=== PATIENT | male | born 1990 | race Caucasian/White ===

== ENCOUNTER 2019-10-21 20:16 | Emergency (ER) | payer OTHER, SELFPAY ==
--- NOTE | ~2019-10-21 | CT_ITS ---
EXAMINATION: CT abdomen pelvis wo con DATE: 10/21/2019 21:39 INDICATION: Left flank pain. TECHNIQUE: Computed tomography (CT) of the abdomen and pelvis was performed without intravenous contr ast. Automated exposure control and iterative reconstruction technique were employed. The dose-length product was 195.60 mGy-cm. COMPARISON: None FINDINGS: 5 mm nodule in the right lower lobe. Mild atelectasis in the left lower lobe. Heart size is normal. N o pericardial or pleural effusion. Liver, gallbladder, spleen, pancreas and bilateral adrenal glands are normal. Kidneys and ureters are normal with no urolithiasis, hydroureteronephrosis or perinephric /ureteral stranding. Bladder is normal. Large amount of stool scattered throughout the colon. No abno rmal bowel wall thickening or obstruction. Appendix is normal. No free intraperitoneal gas or fluid. No pathologically enlarged abdominal or pelvic lymphadenopathy. Mild thoracolumbar spondylosis. IMPRESSION: 1. No urolithiasis or acute intra-abdominal/pelvic process. Reviewed, dictated and finalized at location A. 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
[2019-10-21 20:36] VITALS: BP 155/88; PULSE 89; RESP 18; TEMP 36.7; O2SAT 97
[2019-10-21] MEDS: SODIUM CHLORIDE 0.9% IV 1,000 ML 999 ML IV CONT (21:00)
[2019-10-21] MEDS: KETOROLAC 30 MG/ML VIAL (*BKC) IV PUSH (21:01)
[2019-10-21 21:02] LABS: Basophils Absolute Auto 0.03 K/mm3 (0.00-0.10); Basophils Percent Auto 0.4 % (0.0-1.0); Eosinophils Absolute Auto 0.16 K/mm3 (0.02-0.50); Eosinophils Percent Auto 1.9 % (1.0-6.0); Hematocrit 40.4 % (40.0-54.0); Hemoglobin 14.7 g/dL (14.0-18.0); Immature Granulocyte Absolute 0.03 K/mm3 (0.00-0.00); Immature Granulocyte Percent A 0.4 % (0.0-0.0); Lymphocytes Percent Auto 26.1 % (18.0-42.0); Mean Corpuscular HGB Conc 36.4 g/dL (32.0-36.0); Mean Corpuscular Hemoglobin 31.9 pg (27.0-31.0); Mean Corpuscular Volume 87.6 fL (78.0-102.0); Mean Platelet Volume 8.6 fl (8.7-11.0); Monocytes Absolute Auto 0.58 K/mm3 (0.10-0.90); Monocytes Percent Auto 6.9 % (2.0-11.0); Neutrophils Absolute Auto 5.4 K/mm3 (1.7-7.2); Neutrophils Percent Auto 64.3 % (50.0-70.0); Platelet Count Result 248 K/mm3 (150-420); Red Blood Count 4.61 M/mm3 (4.70-6.10); Red Cell Distribution Width 12.3 % (11.6-14.4); White Blood Count 8.4 K/mm3 (4.8-10.8)
[2019-10-21 21:14] LABS: Partial Thromboplastin Time 28.1 SEC (22.3-31.6)
[2019-10-21 21:19] LABS: Alanine Aminotransferase 21 U/L (16-63); Albumin Level 4.4 g/dL (3.4-5.0); Alkaline Phosphatase 74 U/L (46-116); Anion Gap 11.7 mmol/L (7-16); Aspartate Amino Transferase 18 U/L (15-37); Bilirubin,Total 0.9 mg/dL (0.00-1.00); Blood Urea Nitrogen 16 mg/dL (7-18); Calcium 8.9 mg/dL (8.5-10.1); Carbon Dioxide 30 mmol/L (21-32); Chloride 104 mmol/L (98-108); Estimated CRCL calculation 89 ml/min; Estimated Glomerular Filt Rate > 60; Glucose 96 mg/dL (70-99); Lipase 104 U/L (73-393); Osmolality Calculated 295 mOsm/kg (285-295); Potassium 3.7 mmol/L (3.5-5.1); Sodium 142 mmol/L (136-145); Total Protein 7.4 g/dL (6.4-8.2)
--- NOTE | 2019-10-21 21:24 | ED.BACK ---
HPI - Back Pain/Injury General Chief Complaint: Back Pain/Injury Stated Complaint: 29 YO male w/ no known medical illness here c/o sudden onset of left flank pain w/ radiation to groin that started suddenly at 7:30pm. Here for eval. Related Data Home Medications Medication Instructions Recorded Confirmed atomoxetine 100 mg PO DAILY 10/21/19 10/21/19 buspirone 5 mg PO DAILY 10/21/19 10/21/19 escitalopram oxalate 20 mg PO DAILY 10/21/19 10/21/19 Allergies Allergy/AdvReac Type Severity Reaction Status Date / Time No Known Allergies Allergy Verified 10/21/19 21:10 Review of Systems Constitutional: Constitutional: Reports as per HPI, Reports no additional constitutional complaints, Denies chills and Denies fever(s) ENT: Reports system reviewed and no additional complaints, except as documented Cardiovascular: Cardiovascular: Reports as per HPI and Reports no additional cardiovascular complaints Respiratory: Respiratory: Reports as per HPI and Reports no additional respiratory complaints Gastrointestinal: Gastrointestinal: Reports as per HPI and Reports no additional gastrointestinal complaints Genitourinary: Genitourinary: Reports flank pain (Left CVA TTP) Musculoskeletal: Musculoskeletal: Reports no additional musculoskeletal complaints [facility] Past Medical History Medical History (Updated 10/21/19 @ 22:28 by Mac Richmond MD) ADD (attention deficit disorder) Anxiety Depression Family History Family History (Updated 12/11/17 @ 10:25 by DOCTOR UNKNOWN) Mother Hypertension Sibling Patient's sister is in good health Patient's brother is in good health Exam Const: General: cooperative, healthy appearing and comfortable Chest: Chest palpation & inspection: normal inspection of the chest and normal palpation of entire chest wall Cardio: Jugular venous distension: no JVD GI: Inspection: normal to inspection GI Palp: No abdominal tenderness, Yes Soft to palpation, No Tenderness to palpation present (GI), No Guarding due to palpation present (GI) and No Rigid due to palpation Percussion: Yes normal to percussion Auscultation: normal bowel sounds Rectal Exam: deferred : General: Yes CVA tenderness on the left Back/Spine/Pelvis: Back: CVA tenderness Course Vital Signs Vital signs: Vital Signs Temperature 36.7 C 10/21/19 20:36 Pulse Rate 89 10/21/19 20:36 Respiratory Rate 18 10/21/19 20:36 Blood Pressure 155/88 H 10/21/19 20:36 Pulse Oximetry 97 10/21/19 20:36 Temperature 36.7 C 10/21/19 20:36 Pulse Rate 89 10/21/19 20:36 Respiratory Rate 18 10/21/19 20:36 Blood Pressure 155/88 H 10/21/19 20:36 Pulse Oximetry 97 10/21/19 20:36 MDM - Back Pain/Injury Differential Diagnosis Differential diagnosis: Likely strain of lumbar region and renal colic Lab Data Result diagrams: 10/21/19 20:59 10/21/19 20:59 Labs: Lab Results 10/21/19 10/21/19 10/21/19 Range/Units 20:59 20:59 20:59 WBC 8.4 (4.8-10.8) K/mm3 RBC 4.61 L (4.70-6.10) M/mm3 Hgb 14.7 (14.0-18.0) g/dL Hct 40.4 (40.0-54.0) % MCV 87.6 (78.0-102.0) fL MCH 31.9 H (27.0-31.0) pg MCHC 36.4 H (32.0-36.0) g/dL RDW 12.3 (11.6-14.4) % Plt Count 248 (150-420) K/mm3 MPV 8.6 L (8.7-11.0) fl Immature Gran % (Auto) 0.4 H (0.0-0.0) % Neut % (Auto) 64.3 (50.0-70.0) % Lymph % (Auto) 26.1 (18.0-42.0) % [place] % (Auto) 6.9 (2.0-11.0) % Eos % (Auto) 1.9 (1.0-6.0) % Baso % (Auto) 0.4 (0.0-1.0) % Lymph # (Auto) 2.20 (1.10-4.50) K/mm3 [place] # (Auto) 0.58 (0.10-0.90) K/mm3 Eos # (Auto) 0.16 (0.02-0.50) K/mm3 Baso # (Auto) 0.03 (0.00-0.10) K/mm3 Abs Immat Gran (auto) 0.03 H (0.00-0.00) K/mm3 Absolute Neuts (auto) 5.4 (1.7-7.2) K/mm3 Absolute Nucleated RBC 0.00 (0.00-0.00) K/mm3 Nucleated RBC % 0.0 (0-0.0) % PT 11.0 (9.64-11.0) Seconds INR 1.0 APTT 28
[2019-10-21 22:37] VITALS: BP 148/85; PULSE 78; RESP 20; O2SAT 100
== END 2019-10-21 22:38 | disposition home or self-care (01) ==
PROVIDERS: Emergency Provider Family Medicine
DX: S39.012A Strain of muscle, fascia and tendon of lower back, initial encounter (principal)
CPT/HCPCS: 36415; 74176; 80053; 83690; 85025; 85610; 85730; 96361; 96374; 99283; 99284; J1885; J7030

== ENCOUNTER 2020-11-04 12:08 | Outpatient (CLI) | payer OTHER, SELFPAY ==
--- NOTE | ~2020-11-04 | XR_ITS ---
EXAMINATION: XR shoulder RT min 2V DATE: 11/04/2020 12:35 INDICATION: Right shoulder effusion post fall TECHNIQUE: AP internally and externally rotated, AP oblique externally rotated and transscapular Y vi ews of the right shoulder were obtained. COMPARISON: None FINDINGS: Normal alignment. No fracture. Glenohumeral joint is normal. Acromioclavicular joint is normal. Soft tissues are unremarkable. Cluster of calcified nodules in the right midlung zone consistent with old granulomatous disease. IMPRESSION: No osseous abnormality. Reviewed, dictated and finalized at location B. 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
--- NOTE | ~2020-11-04 | XR_ITS ---
EXAMINATION: XR ankle LT min 3V DATE: 11/04/2020 12:34 INDICATION: Left ankle pain post fall TECHNIQUE: Anteroposterior, oblique, mortise, and lateral views of the left ankle were obtained. COMPARISON: None. FINDINGS: Alignment is normal. No fracture. Joint spaces are well maintained. No ankle joint effusion. The so ft tissues are unremarkable. IMPRESSION: 1. Negative left ankle radiographs. Reviewed, dictated and finalized at location B. 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
== END 2020-11-04 12:09 | disposition home or self-care (01) ==
PROVIDERS: PCP Family Medicine; Visit Provider Family Medicine
DX: M25.572 Pain in left ankle and joints of left foot (principal); M25.411 Effusion, right shoulder
CPT/HCPCS: 73030; 73610

== ENCOUNTER 2021-04-26 20:21 | Emergency (ER) | payer OTHER, SELFPAY ==
--- NOTE | 2021-04-26 20:33 | ED.EYEPROB ---
HPI - Eye Problem General Chief complaint: Eye Problems Stated complaint: eye injury Time Seen by Provider: 04/26/21 20:45 Source: patient and family Mode of arrival: ambulatory Limitations: no limitations History of Present Illness HPI Narrative: Patient comes in with a flash urn after welding in an unprotected way. He evidently had his right eye not shielded you welding for some time yesterday. He started to develop right eye discomfort, which he describes as a sharp, stabbing, severe pain in the right eye. This started about one hour after he was welding with an unprotected right eye. Eye pain has been ongoing now for about 24 hours. Left eye has no discomfort, and was protected at all times. Nothing has decreased the pain at home. No other associated signs or symptoms. MD chief complaint: eye pain Onset description: gradual Duration: constant Location: right eye Eye Symptoms: burning, decreased vision and photophobia Place: work Mechanism: UV exposure Severity: severe If Pain, Quality: sharp Associated symptoms: none Treatments Prior to Arrival: NSAID Related Data Home Medications Medication Instructions Recorded Confirmed atomoxetine 100 mg PO DAILY 10/21/19 04/26/21 buspirone 5 mg PO DAILY 10/21/19 04/26/21 escitalopram oxalate 20 mg PO DAILY 10/21/19 04/26/21 Allergies Allergy/AdvReac Type Severity Reaction Status Date / Time No Known Allergies Allergy Verified 04/26/21 20:49 Review of Systems Constitutional: Constitutional: Reports no additional constitutional complaints Eyes: Eyes: Reports no additional eye complaints ENT: Reports system reviewed and no additional complaints, except as documented Cardiovascular: Cardiovascular: Reports no additional cardiovascular complaints Respiratory: Respiratory: Reports no additional respiratory complaints Gastrointestinal: Gastrointestinal: Reports no additional gastrointestinal complaints Genitourinary: Genitourinary: Reports no additional male genitourinary complaints Musculoskeletal: Musculoskeletal: Reports no additional musculoskeletal complaints Integumentary/Breasts: Skin/Breast: Reports system reviewed and no additional complaints, except as docu Neurologic: Reports system reviewed and no additional complaints, except as documented Psychiatric: Psychiatric: Reports no additional psychiatric complaints Endocrine: Endocrine: Reports no additional endocrine complaints Hematologic/Lymphatic: Hematologic/Lymphatic: Reports no additional hematologic/lymphatic complaints Allergic/Immunologic: Allergic/Immunologic: Reports no additional allergic/immunologic complaints PMFSH Past Medical History Medical History (Updated 04/26/21 @ 21:00 by Juan Morgan MD) ADD (attention deficit disorder) Anxiety Depression Surgical History Surgical History (Updated 04/26/21 @ 23:32 by Juan Morgan MD) No significant past surgical history Family History Family History Mother Hypertension Sibling Patient's sister is in good health Patient's brother is in good health Social History Social History (Updated 04/26/21 @ 23:33 by Juan Morgan MD) Smoking packs per day: 8 Smoking cigarettes per day: 160.0 Smoking status: Current every day smoker Alcohol intake: current Alcohol use details: minimal use Gender identity (if verbalized by the patient): Male Sexual Orientation (if Verbalized by the Patient): Straight or Heterosexual Exam Const: General: no acute distress and alert Orientation/consciousness: patient oriented x3 HENMT: Head: normal to inspection Ears: external ears normal General nose exam: Normal external nose present Face and sinus: normal facial exam Mouth: Yes moist mucous membranes Throat: posterior oropharynx normal Eyes: Other: Eye exam with fluorescein was performed. He appears to have an area about the size of a pea directly over his right cornea
[2021-04-26 20:38] VITALS: BP 162/104; PULSE 92; RESP 20; TEMP 36.9; O2SAT 100
[2021-04-26] MEDS: ERYTHROMYCIN OPHTH OINTMENT 3.5 GM TUBE 1 APPLIC RIGHT EYE (21:33)
[2021-04-26 21:34] VITALS: BP 143/85; PULSE 81; RESP 20; TEMP 36.7; O2SAT 100
== END 2021-04-26 21:35 | disposition home or self-care (01) ==
PROVIDERS: Emergency Provider Emergency Medicine; PCP Family Medicine
DX: H16.131 Photokeratitis, right eye (principal)
CPT/HCPCS: 99283; A9270

== ENCOUNTER 2021-06-02 16:41 | Outpatient (CLI) | payer OTHER, SELFPAY ==
--- NOTE | ~2021-06-02 | XR_ITS ---
XR lumbar spine 2-3V DATE: 06/02/2021 17:00 INDICATION: Low back pain after lifting injury 2 weeks ago TECHNIQUE: AP, lateral, coned lateral lumbosacral views COMPARISON: None FINDINGS: There is moderate loss of interspace height and mild spurring at L1-2 consistent with moder ate degenerative disc disease. The remaining lumbar and lumbosacral interspaces appear relatively pre served. No fracture or bone destruction or spondylolisthesis. The included lower thoracic and lumbar and pedi cles are intact. The sacroiliac joints are normal. IMPRESSION: Moderate degenerative disc disease at L1-2 Reviewed, dictated and finalized at location A.
== END 2021-06-02 16:42 | disposition home or self-care (01) ==
LOC: CHSIMG 16:43
PROVIDERS: PCP Family Medicine; Visit Provider Family Medicine
DX: M54.5 Low back pain (principal)
CPT/HCPCS: 72100

== ENCOUNTER 2021-06-15 17:19 | Emergency (ER) | payer OTHER, SELFPAY ==
[2021-06-15 17:26] VITALS: BP 148/96; PULSE 101; RESP 16; TEMP 36.5; O2SAT 99
--- NOTE | 2021-06-15 17:28 | ED.EAR ---
HPI - Ear Problem General Chief complaint: Ear Stated complaint: ear pain/sore throat Time Seen by Provider: 06/15/21 17:24 Source: patient and RN notes reviewed History of Present Illness HPI Narrative: Patient is a 31-year-old male who presents the urgent care with complaints of left ear pain, left-sided sore throat, and some sinus drainage. Patient states that it started with the left ear pain on yesterday and developed into the sore throat and sinus issues today. Patient denies of any fever, nausea, vomiting. Denies of any contact with illness or anyone in the home that has been sick. Patient has not had his Covid vaccine. No other acute complaints. Patient has not taken anything [id number] for his symptoms. No acute distress noted. Patient aware of the plan of care. Some parts of this dictation were generated by voice recognition software and may contain typographical and/or grammatical inaccuracies. Related Data Home Medications Medication Instructions Recorded Confirmed atomoxetine 100 mg PO DAILY 10/21/19 04/26/21 buspirone 5 mg PO DAILY 10/21/19 04/26/21 escitalopram oxalate 20 mg PO DAILY 10/21/19 04/26/21 Allergies Allergy/AdvReac Type Severity Reaction Status Date / Time No Known Allergies Allergy Verified 04/26/21 20:49 Review of Systems Review of Systems: CONSTITUTIONAL: Denies fever, chills, or sweats. EYES: Denies visual changes, redness, or discharge. ENT: Reports of sinus drainage, left-sided sore throat and left otalgia CARDIOVASCULAR: Denies chest pain, palpitations, or edema. RESPIRATORY: Denies cough or dyspnea. GASTROINTESTINAL: Denies abdominal pain, nausea, vomiting, or diarrhea. GENITOURINARY: Denies dysuria or hematuria. SKIN: Denies rash or itching. MUSCULOSKELETAL: Denies back pain, joint pain, or myalgia. NEUROLOGIC: Denies headache, numbness, or weakness. All other systems reviewed are negative, except as documented in HPI. [facility] Past Medical History Medical History (Updated 06/15/21 @ 17:42 by ROC Bernal) ADD (attention deficit disorder) Anxiety Depression Surgical History Surgical History (Updated 04/26/21 @ 23:32 by Juan Morgan MD) No significant past surgical history Family History Family History Mother Hypertension Sibling Patient's sister is in good health Patient's brother is in good health Social History Social History (Updated 04/26/21 @ 23:33 by Juan Morgan MD) Smoking packs per day: 8 Smoking cigarettes per day: 160.0 Smoking status: Current every day smoker Alcohol intake: current Alcohol use details: minimal use Gender identity (if verbalized by the patient): Male Sexual Orientation (if Verbalized by the Patient): Straight or Heterosexual Comments At the time of my signature, I reviewed and agree with the nursing past medical, surgical, social, and family history. There is no relevant family history pertinent to the patient complaint. Exam Narrative: GENERAL: This is a well-nourished, well-developed patient, in no apparent distress. HEAD: normocephalic, atraumatic. EYES: PERRL. Sclera clear/white. Vision is grossly intact. EARS: External ears normal, auditory canals clear and without drainage, TMs normal without perforation. Hearing grossly intact. NOSE: External nose normal with no obvious nasal discharge, nares without redness, no rhinorrhea. THROAT: Mucous membranes moist, posterior pharynx clear. Mild postnasal drainage NECK: Neck supple CARDIOVASCULAR: Regular rate and rhythm without murmurs, gallops, or rubs. RESPIRATORY: Clear to auscultation. Breath sounds equal bilaterally. No wheezes, rales, or rhonchi. SKIN: warm, intact with no suspicious lesions or rash, good texture and turgor. NEURO: awake, alert, and oriented to person, place and time. There were no obvious focal neurologic abnormalities. EXTREMITIES: No clubbing, cyanosis, or edema. Cou
== END 2021-06-15 17:48 | disposition home or self-care (01) ==
PROVIDERS: Emergency Provider Nurse Practitioner Family; PCP Family Medicine
DX: H92.02 Otalgia, left ear (principal); J02.9 Acute pharyngitis, unspecified; Z20.822 Contact with and (suspected) exposure to COVID-19; F17.210 Nicotine dependence, cigarettes, uncomplicated; F41.9 Anxiety disorder, unspecified; F32.9 Major depressive disorder, single episode, unspecified; F98.8 Other specified behavioral and emotional disorders with onset usually occurring in childhood and adolescence
CPT/HCPCS: 87081; 87880; 99213; G0463

== ENCOUNTER → 2021-06-16 03:23 | Outpatient (CLI) | payer OTHER, SELFPAY ==
[2021-06-16 18:57] LABS: SARS-CoV-2 RNA PCR Negative
== END ==
PROVIDERS: PCP Family Medicine; Visit Provider Nurse Practitioner Family
DX: H92.09 Otalgia, unspecified ear (principal); J02.9 Acute pharyngitis, unspecified; Z20.822 Contact with and (suspected) exposure to COVID-19
CPT/HCPCS: C9803; U0003; U0005

== ENCOUNTER 2021-10-02 12:59 | Emergency (ER) | payer OTHER, SELFPAY ==
[2021-10-02 13:04] VITALS: BP 133/93; PULSE 103; RESP 12; TEMP 36.6; O2SAT 99
--- NOTE | 2021-10-02 13:53 | ED.URI ---
HPI - URI/Sore Throat General Chief Complaint: Upper Respiratory Infection Stated Complaint: sinus drainage Time Seen by Provider: 10/02/21 13:43 Source: patient and RN notes reviewed Mode of arrival: ambulatory Limitations: no limitations History of Present Illness HPI Narrative: Patient presents today complaining of rhinorrhea, postnasal drip, scratchiness in the throat x2 to 3 days. Denies fever, cough, sore throat. He has been taking Sudafed with mild relief. MD elicited complaint: nasal congestion Related Data Home Medications Medication Instructions Recorded Confirmed atomoxetine 100 mg PO DAILY 10/21/19 04/26/21 buspirone 5 mg PO DAILY 10/21/19 04/26/21 escitalopram oxalate 20 mg PO DAILY 10/21/19 04/26/21 Allergies Allergy/AdvReac Type Severity Reaction Status Date / Time No Known Allergies Allergy Verified 04/26/21 20:49 Review of Systems Review of Systems: CONSTITUTIONAL: Denies body aches, fever, chills, or sweats. EYES: Denies visual changes, redness, or discharge. ENT: Denies sore throat, or otalgia.+ Congestion, rhinorrhea, postnasal drip CARDIOVASCULAR: Denies chest pain, palpitations, or edema. RESPIRATORY: Denies cough or dyspnea. GASTROINTESTINAL: Denies abdominal pain, nausea, vomiting, or diarrhea. GENITOURINARY: Denies dysuria or hematuria. SKIN: Denies rash, itching, or wounds. MUSCULOSKELETAL: Denies back pain, joint pain, or myalgia. NEUROLOGIC: Denies headache, numbness, tingling, or weakness. PSYCH: Denies depression or anxiety. [facility] Past Medical History Medical History ADD (attention deficit disorder) Anxiety Depression Surgical History Surgical History No significant past surgical history Family History Family History Mother Hypertension Sibling Patient's sister is in good health Patient's brother is in good health Social History Social History Smoking packs per day: 8 Smoking cigarettes per day: 160.0 Smoking status: Current every day smoker Alcohol intake: current Alcohol use details: minimal use Gender identity (if verbalized by the patient): Male Sexual Orientation (if Verbalized by the Patient): Straight or Heterosexual Comments At time of signature, I have reviewed and agree with nursing past medical, surgical, social and family history unless otherwise noted. Please see nursing chart for further information. There is no relevant family history pertinent to the presenting complaint Exam Narrative: GENERAL: Well-appearing, well-nourished, and in no acute distress. HEAD: Normocephalic, atraumatic. EYES: EOMI. No redness or drainage. Conjunctivae normal. ENT: Mucous membranes pink and moist. Nares clear. No rhinorrhea. TMs normal bilaterally. Throat normal with moderate postnasal drainage. Uvula midline. NECK: Normal AROM. Supple. No lymphadenopathy. CHEST: No respiratory distress. Clear to auscultation. HEART: Regular rate and rhythm. No murmur appreciated. Normal peripheral pulses. EXTREMITIES: Normal range of motion. No edema. SKIN: Warm, dry, no rash. Capillary refill normal. Normal skin turgor. NEURO: No focal deficits. Alert and oriented x3. Gait steady. PSYCH: Normal affect. No signs of depression or anxiety. Course Vital Signs Vital signs: Vital Signs Temperature 97.8 F 10/02/21 13:04 Pulse Rate 103 H 10/02/21 13:04 Respiratory Rate 12 10/02/21 13:04 Blood Pressure 133/93 H 10/02/21 13:04 Pulse Oximetry 99 10/02/21 13:04 Temperature 97.8 F 10/02/21 13:04 Pulse Rate 103 H 10/02/21 13:04 Respiratory Rate 12 10/02/21 13:04 Blood Pressure 133/93 H 10/02/21 13:04 Pulse Oximetry 99 10/02/21 13:04 Reviewed. Pt has been instructed to follow up with his
== END 2021-10-02 14:04 | disposition home or self-care (01) ==
PROVIDERS: Emergency Provider Nurse Practitioner; PCP Family Medicine
DX: J06.9 Acute upper respiratory infection, unspecified (principal); F17.210 Nicotine dependence, cigarettes, uncomplicated; F41.9 Anxiety disorder, unspecified; F32.A Depression, unspecified; F98.8 Other specified behavioral and emotional disorders with onset usually occurring in childhood and adolescence
CPT/HCPCS: 99211; G0463

== ENCOUNTER 2023-01-11 19:58 | Outpatient (CLI) | payer OTHER, SELFPAY ==
--- NOTE | 2023-02-08 17:27 | WPDSLEEPSTUD ---
Sleep Study Date of Study: 01/11/23 Ordering Provider: Tunde Boo MD Interpreting Physician: Makeda Harrington MD Sleep Study Type: Polysomnogram Height: 1.8 m Weight: 81.193 kg Body Mass Index: 25.0 Neck Circumference (inches): 15 [place]: 8 Reason for Sleep Study Insomnia, daytime fatigue Sleep History Mahad Mayes is a 32-year-old man who has a difficult time getting to sleep and staying asleep. He feels that his sleep quality is poor. He is tired during the day. He has dry sinuses and throat on waking. He has jumpy feelings at night and he has night sweats. There is a family history of sleep problems, his mother has sleep apnea. He has used Seroquel which made him more sleepy during the daytime and he had more difficulty functioning. He occasionally awakens from sleep feeling short of breath. He occasionally awakens at night with heartburn, belching or coughing. He frequently snores loudly enough that others complain about it. He always has trouble sleeping with a cold. He occasionally wakes up gasping for breath at night. Occasionally has breathing problems at night observed by others. He always sweats significant sleepy at night. He frequently notices his heart pounding or beating irregularly at night. He occasionally falls asleep during the day. He does not fall asleep involuntarily or while driving. He rarely has loss of muscle tone with strong emotion. He occasionally has daytime difficulties due to excessive sleepiness. He does not feel paralyzed on waking or falling asleep. He occasionally has vivid dreamlike scenes on waking or falling asleep. His sleep is disturbed by nightmares which she attributes to PTSD. He does not feel afraid to go to sleep. He frequently has nightmares. He frequently remembers his dreams. He constantly has racing thoughts. He occasionally feels sad or depressed. He frequently has anxiety. He rarely has muscular tension. He frequently notices parts of his body jerking. He does not kick at night. He rarely has crawling and aching feelings in his legs or any kind of leg pain at night. He frequently has morning jaw pain. He frequently grinds his teeth during sleep. He is not bothered by pain during the day. He rarely is awakened by pain at night. He occasionally wakes up feeling stiff in the morning. Rarely he has sore achy muscles on waking. He occasionally wakes up with pain in the neck and spine. He has concentration difficulties, fatigue, and nightmares. Normal bedtime is 8:30 p.m.. Sometimes he is able to fall asleep easily and at other times it may take longer depending on how active a day he had. When he awakens at night he looks at his phone. It may take him 15 minutes to get back to sleep. He wakes the morning at 3:30 a.m.. On weekends he goes to bed at midnight and wakes at 4:30 a.m. to 6:00 a.m.. He takes naps in the afternoon or evening. A short nap lasting 10 or 15 minutes is not refreshing. He feels better in the afternoon compared to other times of day. Habits: Tobacco : 0.25 pack per day. Caffeine 1 coffee and 1 energy drink a day. Alcohol, only on occasion and social settings. No recreational substances. FORMERLY [facility] Past Medical History Medical History (Updated 02/11/23 @ 19:17 by Makeda Harrington MD) ADD (attention deficit disorder) Anxiety Depression Essential hypertension Insomnia Surgical History Surgical History No significant past surgical history Family History Family History (Updated 02/11/23 @ 18:18 by Makeda Harrington MD) Mother Hypertension Sibling Patient's sister is in good health Patient's brother is in good health Grandparent Diabetes mellitus Social History Social History (Updated 02/11/23 @ 18:19 by Makeda Harrington MD) Smoking packs per day: 0.25 Smoking cigarettes per day: 5.0 Smoking status: Current every day smoker Alcohol intake: cu
[2023-02-11 19:26] VITALS: BMI 25.0
== END 2023-01-12 05:54 | disposition home or self-care (01) ==
PROVIDERS: PCP Family Medicine; Visit Provider Family Medicine
DX: R06.83 Snoring (principal); G47.9 Sleep disorder, unspecified; R53.83 Other fatigue
CPT/HCPCS: 95810